=== PATIENT | female | born 1990 | race Two or more races ===

== ENCOUNTER 2016-07-27 06:29 | Day surgery (SDC) | payer OTHER ==
[2016-07-27] MEDS ORDERED: BUPIVACAINE-EPI 0.5%-1:200000 50 ML VIAL. ONE (06:55)
[2016-07-27] MEDS ORDERED: IV RINGERS,LACTATED 1000ML 1,000 ML IV SCH ×2 (07:00→07:30)
[2016-07-27] MEDS ORDERED: LIDOCAINE 1% 1 ML SYRINGE. ID PRN (07:00)
[2016-07-27] MEDS ORDERED: HYDROMORPHONE 2 MG/ML VIAL. IV PRN (07:00)
[2016-07-27] MEDS ORDERED: PROCHLORPERAZINE 10 MG/2 ML VIAL. IV PRN (07:00)
[2016-07-27] MEDS ORDERED: ONDANSETRON PF 4 MG/2 ML VIAL. IV PRN (07:00)
[2016-07-27] MEDS ORDERED: FENTANYL PF 100 MCG/2 ML VIAL. IV PRN ×2 (07:00)
[2016-07-27] MEDS ORDERED: MORPHINE SULFATE 2 MG/ML DISP.SYRIN. IV PRN (07:00)
[2016-07-27 07:10] LABS: NEG OBC UR NEG; POS OBC UR POS
[2016-07-27] MEDS ORDERED: FENTANYL PF 100 MCG/2 ML VIAL. ONE (07:41)
[2016-07-27] MEDS ORDERED: SEVOFLURANE 61 TO 120 MINUTES. IH ONE (07:41)
[2016-07-27] MEDS ORDERED: PROPOFOL 20 ML IV ONE (07:41)
[2016-07-27] MEDS ORDERED: MIDAZOLAM HCL/PF 2 MG/2 ML VIAL. ONE (07:41)
[2016-07-27] MEDS ORDERED: DEXAMETHASONE SOD PHOS 20 MG/5 ML VIAL. ONE (07:42)
[2016-07-27] MEDS ORDERED: LIDOCAINE 2% 100 MG/5 ML SYRINGE. ONE (07:42)
[2016-07-27] MEDS ORDERED: ONDANSETRON PF 4 MG/2 ML VIAL. ONE (07:42)
--- NOTE | 2016-07-27 08:53 | PDOC ---
BRIEF OPERATIVE NOTE Pre-Op Diagnosis Cervical dysplasia Post-Op Diagnosis Same Procedure Performed LEEP Cone and ECC Surgeon Bassam Cathodic Protection Technician None Anesthesia Type: General Blood Loss 5cc Specimens Obtained ECC and LEEP cone Complications None ESTUARDO DAMON MD Jul 27, 2016 08:53
[2016-07-27 09:46] VITALS: BP 113/57
--- NOTE | 2016-07-27 14:12 | OP ---
DATE OF SURGERY: 07/27/2016 PREOPERATIVE DIAGNOSIS: Cervical dysplasia. POSTOPERATIVE DIAGNOSIS: Cervical dysplasia. PROCEDURE: LEEP/cone biopsy and ECC. SURGEON: Theodore Banegas M.D. EDUCATION RN: None. ESTIMATED BLOOD LOSS: 5 mL. COMPLICATIONS: None. CONDITION: Stable. SPECIMENS: ECC and LEEP/cone. DESCRIPTION OF PROCEDURE: Risks, benefits, indications, and alternatives discussed with the patient and the patient's . The patient was brought to the OR theater, placed in dorsolithotomy position in Jani stirrups with adequate general anesthesia. The patient was prepped and draped in usual sterile manner. Bilateral speculum was placed in the vaginal vault. Cervix was identified, IUD string noted. A gentle ECC was performed, not to disturb the IUD and placed on Telfa sponge and handed off the operative field. LEEP/cone was performed in the usual manner and handed off the operative field. Base of LEEP/cone was cauterized with Bovie vault cautery to control any bleeding. Procedure was terminated. Vaginal vault was wiped clean of any debris or blood. Posterior weighted speculum was removed. The procedure was ended. Sponge, needle and instrument counts were correct x 2 per nursing staff. THEODORE BANEGAS MD DR: RALPH/soren JOB#: [id number] / [id number]
== END 2016-07-27 10:04 | disposition home or self-care (01) ==
LOC: SURG 06:29
PROVIDERS: ATTEND Specialist
DX: N87.9 Dysplasia of cervix uteri, unspecified (principal); Z72.89 Other problems related to lifestyle
CPT/HCPCS: 81025; J1100; J2250; J2405; J2704; J3010; J7120

== ENCOUNTER 2017-11-17 09:39 | Emergency (ER) | payer SELFPAY, OTHER ==
[2017-11-17 09:58] LABS: URINE HCG POC HCG POSITIVE (Negative)
[2017-11-17] MEDS: KETOROLAC 60 MG/2 ML INJ. IM (10:00)
[2017-11-17] MEDS: HYDROcodone/APAP 5/325MG 1 TAB TABLET PO (10:00)
[2017-11-17 10:02] LABS: BILIRUBIN,URINE NEGATIVE (NEG); CLARITY,URINE CLEAR; COLOR,URINE YELLOW; GLUCOSE,URINE NEGATIVE (NEG); NITRITE,URINE NEGATIVE (NEG); PH,URINE 6.5; PROTEIN,URINE NEGATIVE (NEG-TRACE); UROBILINOGEN,URINE 0.2 mg/dL (0.2 mg/dL)
[2017-11-17 10:17] LABS: BACTERIA,URINE FEW /HPF (0-FEW); RBC,URINE RARE /HPF (0-2); SQUAMOUS EPITHELIAL CELL,UR FEW /LPF; WBC,URINE RARE /HPF (0-4)
[2017-11-17 10:19] LABS: ADD MAN DIFF? NO
[2017-11-17 10:22] LABS: BASO % 1 % (0-3); EOS # 0.2 x10^3/uL (0.0-0.7); EOS % 2 % (0-3); HEMATOCRIT 39.3 % (36.0-47.0); HEMOGLOBIN 13.3 g/dL (12.0-15.5); LYMPH # 2.4 x10^3/uL (1.0-4.8); LYMPH % 34 % (24-48); MEAN CORPUSCULAR HEMOGLOBIN 31 pg (25-35); MEAN CORPUSCULAR HGB CONC 34 g/dL (31-37); MEAN CORPUSCULAR VOLUME 93 fL (79-100); MONO # 0.6 x10^3/uL (0.0-1.1); MONO % 8 % (0-9); NEUT # 3.9 x10^3uL (1.8-7.7); NEUT % 55 % (31-73); PLATELET COUNT 291 x10^3/uL (140-400); RED BLOOD COUNT 4.22 x10^6/uL (3.50-5.40); RED CELL DISTRIBUTION WIDTH 12.6 % (11.5-14.5); WHITE BLOOD COUNT 7.1 x10^3/uL (4.0-11.0)
[2017-11-17 10:30] LABS: ANION GAP 12 (6-14); BLOOD UREA NITROGEN 6 mg/dL (7-20); BUN/CREATININE RATIO 12 (6-20); CALCIUM 8.8 mg/dL (8.5-10.1); CARBON DIOXIDE 22 mmol/L (21-32); CHLORIDE 104 mmol/L (98-107); CREATININE 0.5 mg/dL (0.6-1.0); GFR 146.9; GLUCOSE 91 mg/dL (70-99); POTASSIUM 3.9 mmol/L (3.5-5.1); SODIUM 138 mmol/L (136-145)
[2017-11-17 10:36] LABS: ALBUMIN 3.7 g/dL (3.4-5.0); ALBUMIN/GLOBULIN RATIO 0.9 (1.0-1.7); ALK PHOS 57 U/L (46-116); ALT (SGPT) 27 U/L (14-59); AST (SGOT) 22 U/L (15-37); TOTAL BILIRUBIN 0.4 mg/dL (0.2-1.0); TOTAL PROTEIN 7.6 g/dL (6.4-8.2)
== END 2017-11-17 12:02 | disposition home or self-care (01) ==
LOC: ER 09:39
DX: O26.891 Other specified pregnancy related conditions, first trimester (principal); R10.2 Pelvic and perineal pain; R10.31 Right lower quadrant pain; M54.9 Dorsalgia, unspecified; Z3A.01 Less than 8 weeks gestation of pregnancy
CPT/HCPCS: 36415; 76801; 76817; 80053; 81001; 81025; 84702; 85025; 86900; 86901; 99285-25

== ENCOUNTER 2018-01-16 08:54 | Emergency (ER) | payer OTHER ==
[~2018-01-16] VITALS: Ht 154.9 cm; Wt 104.3 kg
[2018-01-16 09:41] LABS: BILIRUBIN,URINE NEGATIVE (NEG); CLARITY,URINE CLEAR; COLOR,URINE YELLOW; NITRITE,URINE NEGATIVE (NEG); PH,URINE 6.5; PROTEIN,URINE NEGATIVE (NEG-TRACE); UROBILINOGEN,URINE 0.2 mg/dL (0.2 mg/dL)
[2018-01-16 09:54] LABS: BASO % 0 % (0-3); EOS # 0.2 x10^3/uL (0.0-0.7); EOS % 2 % (0-3); HEMATOCRIT 35.4 % (36.0-47.0); HEMOGLOBIN 12.2 g/dL (12.0-15.5); LYMPH # 2.1 x10^3/uL (1.0-4.8); LYMPH % 29 % (24-48); MEAN CORPUSCULAR HEMOGLOBIN 32 pg (25-35); MEAN CORPUSCULAR HGB CONC 35 g/dL (31-37); MEAN CORPUSCULAR VOLUME 93 fL (79-100); MONO # 0.5 x10^3/uL (0.0-1.1); MONO % 7 % (0-9); NEUT # 4.5 x10^3uL (1.8-7.7); NEUT % 62 % (31-73); PLATELET COUNT 281 x10^3/uL (140-400); RED BLOOD COUNT 3.81 x10^6/uL (3.50-5.40); RED CELL DISTRIBUTION WIDTH 12.4 % (11.5-14.5); WHITE BLOOD COUNT 7.4 x10^3/uL (4.0-11.0)
[2018-01-16 10:02] LABS: SQUAMOUS EPITHELIAL CELL,UR MOD /LPF
[2018-01-16 10:03] LABS: BACTERIA,URINE FEW /HPF (0-FEW); RBC,URINE 0 /HPF (0-2)
--- NOTE | 2018-01-16 10:30 | RAD ---
Obstetrical ultrasound, 01/16/2018: HISTORY: Vaginal bleeding Transabdominal scans were obtained. There is a single intrauterine fetus in a transverse orientation. The biparietal diameter measures 2.1 cm compatible with a gestational age of 13-14 weeks. This yields a sonographic EDC of 07/22/2018. Normal activity and heart motion were seen. The heart rate is 155 bpm. A normal amount of adnexal fluid is present. The developing placenta lies anteriorly. It currently overlies the region of the internal cervical os. No periplacental hemorrhage is identified. The cervical length was estimated at 3.2 cm. The maternal ovaries were not visualized. IMPRESSION: 1. Single viable intrauterine fetus of 13-14 weeks gestational age. 2. Placenta previa is currently evident. Sonographic follow-up is suggested Electronically signed by: Lamont Joaquin MD (01/16/2018 10:26 AM) [facility]
[2018-01-16] MEDS ORDERED: METR500T8 PO (10:44)
--- NOTE | 2018-01-16 10:45 | PHYS DOC ---
Past Medical History Past Medical History: Other Additional Past Medical Histor: CHRONIC BACK PAIN Past Surgical History: Other Additional Past Surgical Histo: LEEP Alcohol Use: None Drug Use: None Adult General Chief Complaint Chief Complaint: VAGINAL BLEEDING HPI HPI Patient is a 27 year old female she is 12 weeks . Patient states last time she began having light. Bleeding and this morning it has stopped. Patient states she never saw any clots. Patient states she was having some menstrual- like cramping but now she has none. Patient rates her pain a 3 out of 10. And states she has lower back pain that she has chronic lower back pain. Patient denies any urinary symptoms or vaginal discharge. Patient states that she did have sex yesterday and the bleeding started. Patient states her last mental. Still in A. fib and that she is due July 28. Patient states she takes no medications except for prenatals. Patient states she has not taken any Tylenol for pain. She states she had a LEEP procedure back in Spring and she has been 6 times, had 4 babies, and one miscarriage. Review of Systems Review of Systems Constitutional: Denies fever or chills [] Eyes: Denies change in visual acuity, redness, or eye pain [] HENT: Denies nasal congestion or sore throat [] Respiratory: Denies cough or shortness of breath [] Cardiovascular: No additional information not addressed in HPI [] GI: Denies abdominal pain, nausea, vomiting, bloody stools or diarrhea [] : vaginal bleeding. Denies dysuria or hematuria [] Musculoskeletal: Denies back pain or joint pain [] Integument: Denies rash or skin lesions [] Neurologic: Denies headache, focal weakness or sensory changes [] Endocrine: Denies polyuria or polydipsia [] All other systems were reviewed and found to be within normal limits, except as documented in this note. Allergies Allergies Allergies Coded Allergies Type Severity Reaction Last Updated Verified No Known Drug Allergies 07/27/16 No Physical Exam Physical Exam Constitutional: Well developed, well nourished, no acute distress, non-toxic appearance. [] HENT: Normocephalic, atraumatic, bilateral external ears normal, oropharynx moist, no oral exudates, nose normal. [] Eyes: PERRLA, EOMI, conjunctiva normal, no discharge. [] Neck: Normal range of motion, no tenderness, supple, no stridor. [] Cardiovascular:Heart rate regular rhythm, no murmur [] Lungs & Thorax: Bilateral breath sounds clear to auscultation [] Abdomen: Vaginal discharge. Bowel sounds normal, soft, no tenderness, no masses , no pulsatile masses. [] Skin: Warm, dry, no erythema, no rash. [] Back: No tenderness, no CVA tenderness. [] Extremities: No tenderness, no cyanosis, no clubbing, ROM intact, no edema. [] Neurologic: Alert and oriented X 3, normal motor function, normal sensory function, no focal deficits noted. [] Psychologic: Affect normal, judgement normal, mood normal. [] Current Patient Data Vital Signs Vital Signs Date Time Temp Pulse Resp B/P (MAP) Pulse Ox O2 Delivery O2 Flow Rate FiO2 01/16/18 11:18 97 16 154/84 (107) 97 Room Air 01/16/18 09:00 98.7 98.7 Lab Values Laboratory Tests Test 01/16/18 09:24 01/16/18 09:30 01/16/18 09:31 Urine Collection Type Void Urine Color Yellow Urine Clarity Clear Urine pH 6.5 Urine Specific [place] 1.015 Urine Protein Negative mg/dL (NEG-TRACE) Urine Glucose (UA) Negative mg/dL (NEG) Urine Ketones (Stick) Trace mg/dL (NEG) Urine Blood Negative (NEG) Urine Nitrite Negative (NEG) Urine Bilirubin Negative (NEG) Urine Urobilinogen Dipstick 0.2 mg/dL (0.2 mg/dL) Urine Leukocyte Esterase Negative (NEG) Urine RBC 0 /HPF (0-2) Urine WBC 1-4 /HPF (0-4) Urine Squamous Epithelial Cells Mod /LPF Urine Bacteria Few /HPF (0-FEW) Urine Mucus Marked /LPF White Blood Count 7.4 x10^3/uL (4.0-11.0) Red Blood Count 3.81 x10^6/uL (3.50-5.40) Hemoglobin 12.2 g/dL (12.0-15.5) Hematocrit 35.4 % (36.0-47.0) L Mean Corpuscular Volume 93 fL (79-100) Mean Corpuscular Hemoglobin 32 pg (25-35) Mean Corpuscular Hemoglobin Concent 35 g/dL (31-37) Red Cell Distribution Width 12.4 % (11.5-14.5) Platelet Count 281 x10^3/uL (140-400) Neutrophils (%) (Auto) 62 % (31-73) Lymphocytes (%) (Auto) 29 % (24-48) Monocytes (%) (Auto) 7 % (0-9) Eosinophils (%) (Auto) 2 % (0-3) Basophils (%) (Auto) 0 % (0-3) Neutrophils # (Auto) 4.5 x10^3uL (1.8-7.7) Lymphocytes # (Auto) 2.1 x10^3/uL (1.0-4.8) Monocytes # (Auto) 0.5 x10^3/uL (0.0-1.1) Eosinophils # (Auto) 0.2 x10^3/uL (0.0-0.7) Basophils # (Auto) 0.0 x10^3/uL (0.0-0.2) Maternal Serum HCG Beta Subunit 50658 mIU/mL (0-5) H POC Urine HCG, Qualitative Hcg positive (Negative) Laboratory Tests 01/16/18 09:30 Microbiology 01/16/18 Wet Prep - Final, Complete EKG EKG [] Radiology/Procedures Radiology/Procedures [US Impressions: [facility] [id number], [place] [id number] IMAGING REPORT Signed PATIENT: DOMINIQUE MCDONALD ACCOUNT: [id number] : 1990 LOCATION: ER AGE: 27 SEX: F EXAM STATUS: REG ER ORD. PHYSICIAN: VALERIY ZEE APRN REASON: vaginal bleeding PROCEDURE: OB < 14 WKS Obstetrical ultrasound, 01/16/2018: HISTORY: Vaginal bleeding Transabdominal scans were obtained. There is a single intrauterine fetus in a transverse orientation. The biparietal diameter measures 2.1 cm compatible with a gestational age of 13-14 weeks. This yields a sonographic EDC of 07/22/2018. Normal activity and heart motion were seen. The heart rate is 155 bpm. A normal amount of adnexal fluid is present. The developing placenta lies anteriorly. It currently overlies the region of the internal cervical os. No periplacental hemorrhage is identified. The cervical length was estimated at 3.2 cm. The maternal ovaries were not visualized. IMPRESSION: 1. Single viable intrauterine fetus of 13-14 weeks gestational age. 2. Placenta previa is currently evident. Sonographic follow-up is suggested Electronically signed by: Lamont Joaquin MD (01/16/2018 10:26 AM) [facility] DICTATED and SIGNED BY: LAMONT JOAQUIN MD DATE: 01/16/18 1023 Course & Med Decision Making Course & Med Decision Making Patient is a 27 year old female she is 12 weeks . Patient states last time she began having light. Bleeding and this morning it has stopped. Patient states she never saw any clots. Patient states she was having some menstrual- like cramping but now she has none. Patient rates her pain a 3 out of 10. And states she has lower back pain that she has chronic lower back pain. Patient denies any urinary symptoms or vaginal discharge. Patient states that she did have sex yesterday and the bleeding started. Patient states her last mental. Still in A. fib and that she is due July 28. Patient states she takes no medications except for prenatals. Patient states she has not taken any Tylenol for pain. She states she had a LEEP procedure back in Spring and she has been 6 times, had 4 babies, and one miscarriage. Abdomen is soft and nontender. Lungs are clear to auscultation in all lobes. Heart rate regular without murmur. Patient has no extremity edema. Upon pelvic exam patient does have vaginal discharge that is white. Patient does not have any adnexal tenderness. Since urine is not infected but she is diagnosed with bacterial vaginosis of which she will get a prescription for metronidazole. 1. Single viable intrauterine fetus of 13-14 weeks gestational age.2. Placenta previa is currently evident. Sonographic follow-up is suggested. Patient is to follow-up with her FAX MACHINE REPAIRER as soon as possible and to have pelvic rest until she is seen by her FAX MACHINE REPAIRER. Return to the ED if she begins having extreme abdominal pain and cramping and vaginal bleeding. [] Dragon Disclaimer Dragon Disclaimer This electronic medical record was generated, in whole or in part, using a voice recognition dictation system. Departure Departure Impression: Primary Impression: Vaginal bleeding before 22 weeks gestation Additional Impression: BV (bacterial vaginosis) Disposition: 01 HOME, SELF-CARE Condition: STABLE Referrals: CIRILO CHRISTIE MD (PCP) Additional Instructions: NO SEX UNTIL YOU FOLLOW UP WITH YOUR PRIMARY CARE PHYSICIAN. FOLLOW UP SOON POSSIBLE. Scripts Metronidazole (METRONIDAZOLE) 500 Mg Tablet 1 TAB PO BID, #14 TAB Prov: VALERIY ZEE APRN 01/16/18 Problem Qualifiers VALERIY ZEE APRN Jan 16, 2018 10:45
[2018-01-16 11:18] VITALS: BP 154/84
[2018-01-17 15:34] LABS: GC PROBE Negative (Negative)
== END 2018-01-16 11:18 | disposition home or self-care (01) ==
LOC: ER 08:54
DX: O46.91 Antepartum hemorrhage, unspecified, first trimester (principal); O23.591 Infection of other part of genital tract in pregnancy, first trimester; N76.0 Acute vaginitis; B96.89 Other specified bacterial agents as the cause of diseases classified elsewhere; G89.29 Other chronic pain; M54.5 Low back pain; Z3A.12 12 weeks gestation of pregnancy
CPT/HCPCS: 36415; 76801; 81001; 81025; 84702; 85025; 86850; 86900; 86901; 87491; 87591; 99285; Q0111

== ENCOUNTER 2018-04-15 12:40 | Observation (INO) | payer OTHER ==
[~2018-04-15 12:40] MED LIST: METR-84 PO
[2018-04-15] MEDS ORDERED: IV RINGERS,LACTATED 1000ML 1,000 ML IV SCH (13:15)
[2018-04-15 13:39] LABS: BILIRUBIN,URINE NEGATIVE (NEG); CLARITY,URINE CLOUDY; COLOR,URINE YELLOW; NITRITE,URINE NEGATIVE (NEG); PH,URINE 7.5; PROTEIN,URINE NEGATIVE (NEG-TRACE)
[2018-04-15 13:54] LABS: AMORPHOUS SEDIMENT,UR PRESENT /HPF; BACTERIA,URINE 0 /HPF (0-FEW); RBC,URINE 0 /HPF (0-2); SQUAMOUS EPITHELIAL CELL,UR FEW /LPF; WBC,URINE 0 /HPF (0-4)
[2018-04-15 14:14] LABS: INFLUENZA A PATIENT NEGATIVE (NEGATIVE); INFLUENZA B PATIENT NEGATIVE (NEGATIVE)
--- NOTE | 2018-04-15 14:36 | RAD ---
CHEST PA LATERAL History: PATIENT HAS COLD AND FLU SYMPTOMS SINCE MONDAY
CONSENT SIGNED, PATIENT SHIELDED, 25 WEEKS-1 DAY. Comparison: None. Heart size: Within normal limits. Alayna/mediastinum: Within normal limits Lungs: There is mild hazy density in the left midlung, seen on the PA image. No dense lobar consolidation. Pleura: No evidence of pleural effusion. Pneumothorax: None visualized Bones: Regional skeleton appears grossly intact. Miscellaneous: None Impression: 1. Small ill-defined opacity overlying left midlung, lateral to the hilum, compatible with a small infiltrate. Electronically signed by: Jeremy Rashid MD (04/15/2018 2:32 PM) [facility]
[2018-04-15] MEDS ORDERED: AMOX500C PO (16:17)
== END 2018-04-15 14:50 | disposition home or self-care (01) ==
LOC: 3 SO LND 12:40
PROVIDERS: ADMIT Specialist; ATTEND Specialist
DX: O26.892 Other specified pregnancy related conditions, second trimester (principal); R10.9 Unspecified abdominal pain; J00 Acute nasopharyngitis [common cold]; Z3A.25 25 weeks gestation of pregnancy
CPT/HCPCS: 71046; 81001; 87804; G0378; G0379

== ENCOUNTER 2018-04-15 15:09 | Emergency (ER) | payer OTHER ==
[~2018-04-15] VITALS: Ht 12.7 cm; Wt 94.3 kg
[2018-04-15] MEDS ORDERED: IV NORMAL SALINE 1000ML BAG 1,000 ML IV ONE (16:15)
[2018-04-15] MEDS ORDERED: cefTRIAXone IV Push 1 GM VIAL. IVP ONE (16:15)
[2018-04-15] MEDS ORDERED: AMOX500C PO (16:17)
[2018-04-15 17:03] LABS: BASO % 1 % (0-3); EOS # 0.2 x10^3/uL (0.0-0.7); EOS % 2 % (0-3); HEMATOCRIT 34.1 % (36.0-47.0); HEMOGLOBIN 11.7 g/dL (12.0-15.5); LYMPH # 2.2 x10^3/uL (1.0-4.8); LYMPH % 24 % (24-48); MEAN CORPUSCULAR HEMOGLOBIN 32 pg (25-35); MEAN CORPUSCULAR HGB CONC 34 g/dL (31-37); MEAN CORPUSCULAR VOLUME 93 fL (79-100); MONO # 0.9 x10^3/uL (0.0-1.1); MONO % 9 % (0-9); NEUT # 6.1 x10^3uL (1.8-7.7); NEUT % 65 % (31-73); PLATELET COUNT 248 x10^3/uL (140-400); RED BLOOD COUNT 3.66 x10^6/uL (3.50-5.40); RED CELL DISTRIBUTION WIDTH 13.6 % (11.5-14.5); WHITE BLOOD COUNT 9.4 x10^3/uL (4.0-11.0)
[2018-04-15 17:05] LABS: CALCIUM 8.8 mg/dL (8.5-10.1); CREATININE 0.7 mg/dL (0.6-1.0); GFR 99.6; POTASSIUM 3.1 mmol/L (3.5-5.1)
[2018-04-15 17:11] LABS: ALBUMIN 2.4 g/dL (3.4-5.0); ALBUMIN/GLOBULIN RATIO 0.5 (1.0-1.7); TOTAL BILIRUBIN 0.2 mg/dL (0.2-1.0); TOTAL PROTEIN 7.1 g/dL (6.4-8.2)
[2018-04-15 17:30] VITALS: BP 110/62
[2018-04-15] MEDS ORDERED: POTASSIUM CHLORIDE 20 MEQ/15 ML ORAL LIQUID. PO ONE (17:30)
--- NOTE | 2018-04-15 17:40 | PHYS DOC ---
Past Medical History Past Medical History: No Pertinent History, Other Additional Past Medical Histor: CHRONIC BACK PAIN Past Surgical History: Other Additional Past Surgical Histo: LEEP Alcohol Use: None Drug Use: None Adult General Chief Complaint Chief Complaint: OTHER COMPLAINTS HPI HPI Patient is a 27 year old female referred from Dr. Banegas upstairs for pneumonia. She was presenting with a few days of cough and some abdominal discomfort that really was only when she was coughing she was cleared by labor and delivery prior to coming here subjective fevers body aches some mild shortness of breath symptoms are overall getting somewhat worse flu swab was negative upstairs according to the nursing staff as well as the urine also. She had a small infiltrate on x-ray so was referred to the ER for further medical evaluation. Review of Systems Review of Systems Constitutional: Eyes: Denies change in visual acuity, redness, or eye pain [] HENT: Respiratory: Musculoskeletal: Denies back pain or joint pain [] Integument: Denies rash or skin lesions [] Neurologic: Denies headache, focal weakness or sensory changes [] Endocrine: Denies polyuria or polydipsia [] All other systems were reviewed and found to be within normal limits, except as documented in this note. Current Medications Current Medications Current Medications Medications (Trade) Dose Ordered Sig/Onofre Start Time Stop Time Status Last Admin Dose Admin Ceftriaxone Sodium (Rocephin) 1 gm 1X ONCE 04/15/18 16:15 04/15/18 16:16 DC 04/15/18 17:01 1 GM Potassium Chloride (KCl Oral Soln) 40 meq 1X ONCE 04/15/18 17:30 04/15/18 17:31 DC Sodium Chloride 1,000 ml @ 1,000 mls/hr 1X ONCE 04/15/18 16:15 04/15/18 17:14 DC 04/15/18 17:00 1,000 MLS/HR Allergies Allergies Allergies Coded Allergies Type Severity Reaction Last Updated Verified No Known Drug Allergies 07/27/16 No Physical Exam Physical Exam Constitutional: Well developed, well nourished, no acute distress, non-toxic appearance. [] HENT: Normocephalic, atraumatic, bilateral external ears normal, oropharynx moist, no oral exudates, nose normal. [] Eyes: PERRLAnjunctiva normal, no discharge. [] Neck: Normal range of motion, no tenderness, supple, no stridor. [] Cardiovascular:Heart rate regular rhythm, no murmur [] Lungs & Thorax: Bilateral breath sounds clear to auscultation []gravid but nontender Abdomen: Bowel sounds normal, soft, no tenderness, no masses, no pulsatile masses. [] Skin: Warm, dry, no erythema, no rash. [] Back: No tenderness, no CVA tenderness. [] Extremities: No tenderness, no cyanosis, no clubbing, ROM intact, Neurologic: Alert and oriented X 3, normal motor function, normal sensory function, no focal deficits noted. [] Psychologic: Affect normal, judgement normal, mood normal. [] Current Patient Data Vital Signs Vital Signs Date Time Temp Pulse Resp B/P (MAP) Pulse Ox O2 Delivery O2 Flow Rate FiO2 04/15/18 16:00 98.3 109 20 120/64 (82) Room Air 97.0 98.3 Lab Values Laboratory Tests Test 04/15/18 16:40 White Blood Count 9.4 x10^3/uL (4.0-11.0) Red Blood Count 3.66 x10^6/uL (3.50-5.40) Hemoglobin 11.7 g/dL (12.0-15.5) L Hematocrit 34.1 % (36.0-47.0) L Mean Corpuscular Volume 93 fL (79-100) Mean Corpuscular Hemoglobin 32 pg (25-35) Mean Corpuscular Hemoglobin Concent 34 g/dL (31-37) Red Cell Distribution Width 13.6 % (11.5-14.5) Platelet Count 248 x10^3/uL (140-400) Neutrophils (%) (Auto) 65 % (31-73) Lymphocytes (%) (Auto) 24 % (24-48) Monocytes (%) (Auto) 9 % (0-9) Eosinophils (%) (Auto) 2 % (0-3) Basophils (%) (Auto) 1 % (0-3) Neutrophils # (Auto) 6.1 x10^3uL (1.8-7.7) Lymphocytes # (Auto) 2.2 x10^3/uL (1.0-4.8) Monocytes # (Auto) 0.9 x10^3/uL (0.0-1.1) Eosinophils # (Auto) 0.2 x10^3/uL (0.0-0.7) Basophils # (Auto) 0.0 x10^3/uL (0.0-0.2) Sodium Level 134 mmol/L (136-145) L Potassium Level 3.1 mmol/L (3.5-5.1) L Chloride Level 100 mmol/L (98-107) Carbon Dioxide Level 20 mmol/L (21-32) L Anion Gap 14 (6-14) Blood Urea Nitrogen 7 mg/dL (7-20) Creatinine 0.7 mg/dL (0.6-1.0) Estimated GFR (Cockcroft-Gault) 99.6 BUN/Creatinine Ratio 10 (6-20) Glucose Level 112 mg/dL (70-99) H Calcium Level 8.8 mg/dL (8.5-10.1) Total Bilirubin 0.2 mg/dL (0.2-1.0) Aspartate Amino Transferase (AST) 15 U/L (15-37) Alanine Aminotransferase (ALT) 17 U/L (14-59) Alkaline Phosphatase 75 U/L (46-116) Total Protein 7.1 g/dL (6.4-8.2) Albumin 2.4 g/dL (3.4-5.0) L Albumin/Globulin Ratio 0.5 (1.0-1.7) L Laboratory Tests 04/15/18 16:40 Laboratory Tests 04/15/18 16:40 EKG EKG [] Radiology/Procedures Radiology/Procedures [] Impressions: Chest x-ray showed small infiltrate Course & Med Decision Making Course & Med Decision Making Pertinent Labs and Imaging studies reviewed. (See chart for details) [] pneumonia old woman who is 25 weeks labs look pretty good we did replete her potassium. community acquired pna, overall well appearing. hydrated, ceftriaxone, add high dose amox to azithro. d/w banegas he will f/u with her on monday Mirna Disclaimer Mirna Disclaimer This electronic medical record was generated, in whole or in part, using a voice recognition dictation system. Departure Departure Impression: Primary Impression: Pneumonia Disposition: HOME, SELF-CARE Condition: STABLE Patient Instructions: Pneumonia, Adult, [id number] Scripts Amoxicillin (AMOXICILLIN) 500 Mg Capsule 2 CAP PO BID, #40 CAP Prov: MAGDALENA WALKER MD 04/15/18 MAGDALENA WALKER MD Apr 15, 2018 17:40
== END 2018-04-15 18:14 | disposition home or self-care (01) ==
LOC: ER 15:09
DX: J18.9 Pneumonia, unspecified organism (principal); R10.9 Unspecified abdominal pain; G89.29 Other chronic pain; M54.9 Dorsalgia, unspecified
CPT/HCPCS: 36415; 80053; 85025; 96374; 99283; J0696; J7030

== ENCOUNTER 2018-07-26 23:39 | Inpatient (IN) | payer OTHER ==
[~2018-07-26] VITALS: Ht 154.9 cm; Wt 97.5 kg
[~2018-07-26 23:39] MED LIST changes: +AMOX500C PO; +METR-34 PO; -METR-84 PO
[2018-07-26] MEDS ORDERED: TERBUTALINE 1 MG/ML VIAL. SQ PRN (23:45)
[2018-07-26] MEDS ORDERED: LIDOCAINE 1% PF 30 ML VIAL. INJ PRN (23:45)
[2018-07-26] MEDS ORDERED: IV RINGERS,LACTATED 1000ML 1,000 ML IV SCH (23:45)
[2018-07-26] MEDS ORDERED: MAG HYDROX/ALUMINUM HYD/SIMETH 30 ML ORAL.SUSP PO PRN (23:45)
[2018-07-26] MEDS ORDERED: OXYTOCIN 30 UNIT/500 ML PREMIX 500 ML IV PRN ×2 (23:45)
[2018-07-26] MEDS ORDERED: 0.9 % SODIUM CHLORIDE 10 ML DISP.SYRIN. IV PRN (23:45)
[2018-07-26] MEDS ORDERED: ONDANSETRON PF 4 MG/2 ML VIAL. IV PRN (23:45)
[2018-07-26] MEDS ORDERED: ACETAMINOPHEN 325 MG TABLET. PO PRN (23:45)
[2018-07-26] MEDS ORDERED: IBUPROFEN 400 MG TABLET. PO PRN (23:45)
[2018-07-26] MEDS ORDERED: fentaNYL PF VIAL 100 MCG/2 ML VIAL IV PRN ×2 (23:45)
[2018-07-26] MEDS ORDERED: BUTORPHANOL 2 MG/ML VIAL. IV PRN ×2 (23:45)
[2018-07-27 00:35] LABS: BILIRUBIN,URINE NEGATIVE (NEG); CLARITY,URINE CLEAR; COLOR,URINE YELLOW; NITRITE,URINE NEGATIVE (NEG); PH,URINE 6.5; PROTEIN,URINE NEGATIVE (NEG-TRACE); UROBILINOGEN,URINE 0.2 mg/dL (0.2 mg/dL)
[2018-07-27 00:40] LABS: BASO % 0 % (0-3); EOS # 0.2 x10^3/uL (0.0-0.7); EOS % 2 % (0-3); HEMATOCRIT 37.6 % (36.0-47.0); HEMOGLOBIN 12.4 g/dL (12.0-15.5); LYMPH # 2.6 x10^3/uL (1.0-4.8); LYMPH % 30 % (24-48); MEAN CORPUSCULAR HEMOGLOBIN 30 pg (25-35); MEAN CORPUSCULAR HGB CONC 33 g/dL (31-37); MEAN CORPUSCULAR VOLUME 91 fL (79-100); MONO # 0.7 x10^3/uL (0.0-1.1); MONO % 8 % (0-9); NEUT % 59 % (31-73); PLATELET COUNT 221 x10^3/uL (140-400); RED BLOOD COUNT 4.12 x10^6/uL (3.50-5.40); RED CELL DISTRIBUTION WIDTH 16.3 % (11.5-14.5); WHITE BLOOD COUNT 8.4 x10^3/uL (4.0-11.0)
[2018-07-27 00:41] LABS: BARBITURATES NEG (NEG); BENZODIAZEPINES NEG (NEG); CANNABINOIDS NEG (NEG); COCAINE NEG (NEG); METHADONE NEG (NEG); OPIATES NEG (NEG); PHENCYCLIDINE NEG (NEG)
[2018-07-27 00:44] LABS: AMPHETAMINE/METHAMPHETAMINE NEG (NEG)
[2018-07-27 01:44] VITALS: BP 116/63
--- NOTE | 2018-07-27 07:06 | PDOC1 ---
OB - History Hx of Present Care: Good Care Ultrasounds: Normal mid trimester US Obstetrical Complications: None Medical Complications: None Past Family/Social History * Past Medical, Surgical, Family and Obstetric Histories reviewed from chart. Rubella: Immune RPR/VDRL: Negative GBS Status: Negative HBsAG: Negative OB - Chief Complaint & HPI Date of Admission: Date of Admission: Jul 26, 2018 at 23:39 Chief Complaint/History : 5 Para: 4 EGA: 39 Reason for admission: induction of labor Indication for induction: maternal discomfort Admission Nurse Assessment Rev: Yes OB - Admission Exam Physical Exam Vitals: VS - Last 72 Hours, by Label Date Time Temp Pulse Resp B/P (MAP) Pulse Ox O2 Delivery O2 Flow Rate FiO2 07/27/18 06:48 18 Room Air 07/27/18 01:44 98.6 79 18 116/63 (80) 93 Room Air 98.6 HEENT: Normal Heart: Regular Rate Lungs: Clear Abdomen: Gravid, Non tender, Soft Extremities: Edema Reflexes: Normal Cervical Dilatation: 2cm Effacement: 50% Station: -3 Membranes: Intact Heart Rate: Normal Accelerations: Accelerations Present Decelerations: No decelerations Contractions on Admission: None Text A: 39 wks IUP IOL secondary discomforts P: Admit for IOL. ABDIEL LU Jr, MD Jul 27, 2018 07:06
[2018-07-27] MEDS ORDERED: ROPIVacaine 0.2% PF 10 ML VIAL. ONE ×2 (07:31→08:00)
[2018-07-27] MEDS ORDERED: L&D EPIDURAL SYRINGE 50 ML ONE (07:32)
[2018-07-27] MEDS ORDERED: IV RINGERS,LACTATED 1000ML 1,000 ML IV SCH (07:57)
[2018-07-27] MEDS ORDERED: ePHEDrine PF IN SALINE 50 MG/10 ML SYRINGE. IV PRN (08:00)
[2018-07-27] MEDS ORDERED: L&D EPIDURAL 50 ML SYRINGE. ONE (08:00)
[2018-07-27] MEDS ORDERED: ROPIVacaine 0.2% IN 0.9%NACL PF 40 MG/20 ML DISP.SYRIN. EPI PRN (08:00)
[2018-07-27] MEDS ORDERED: NALOXONE 0.4 MG/ML VIAL. IV PRN (08:00)
[2018-07-27] MEDS ORDERED: L&D EPIDURAL CASSETTE 100 ML EPID PRN (08:00)
[2018-07-27] MEDS ORDERED: IBUPROFEN 400 MG TABLET. PO PRN ×2 (10:45→12:00)
[2018-07-27] MEDS ORDERED: OXYTOCIN 30 UNIT/500 ML PREMIX 500 ML IV PRN (10:45)
[2018-07-27] MEDS ORDERED: ACETAMINOPHEN 325 MG TABLET. PO PRN (10:45)
[2018-07-27] MEDS ORDERED: SIMETHICONE 80 MG TAB.CHEW PO PRN (10:45)
[2018-07-27] MEDS ORDERED: 0.9 % SODIUM CHLORIDE 10 ML DISP.SYRIN. IV PRN (10:45)
[2018-07-27] MEDS ORDERED: MAG HYDROX/ALUMINUM HYD/SIMETH 30 ML ORAL.SUSP PO PRN (10:45)
[2018-07-27] MEDS ORDERED: BENZOCAINE 20% TOPICAL AEROSOL SPRAY 57GM CAN. TP PRN (10:45)
[2018-07-27] MEDS ORDERED: diphenhydrAMINE HCL 25 MG CAPSULE PO PRN (10:45)
[2018-07-27] MEDS ORDERED: ZOLPIDEM 5 MG TABLET. PO PRN (10:45)
[2018-07-27] MEDS ORDERED: PHENYLEPH/MINERAL OIL/PETROLAT RECTAL OINTMENT 28GM TUBE. RC PRN (10:45)
[2018-07-27] MEDS ORDERED: MAGNESIUM HYDROXIDE 2,400 MG/30 ML ORAL.SUSP. PO PRN (10:45)
[2018-07-27] MEDS ORDERED: HYDROCORTISONE 1% TOPICAL OINTMENT 30GM TUBE. TP PRN (10:45)
--- NOTE | 2018-07-27 11:06 | PDOC ---
VAGINAL DELIVERY DATE DATE: 07/27/18 TIME: 11:05 : 5 Para: 4 EDC: Aug 02, 2018 VAGINAL DELIVERY: VTX VACCUM ASSISTED: No PLACENTA: Spontaneous SEX: Female WEIGHT 8/10 Nuchal Cord: No Amniotic Fluid: Clear PAIN: Epidural EPISIOTOMY: No EXTENSION: No EBL 300cc COMPLICATIONS -N-o-n-e- CONDITION Stable Signs of Intrauterine Infectio: None Shoulder Dystocia: No DIAGNOSIS ESTUARDO Morrison MD Jul 27, 2018 11:06
[2018-07-27] MEDS: IBUPROFEN 400 MG TABLET. PO SCH ×2 (12:17→20:12)
[2018-07-27 14:00] VITALS: BP 92/62
[2018-07-27 15:15] VITALS: BP 96/62
[2018-07-27] MEDS ORDERED: DIPHTH,PERTUSS(ACELL),TET TOX 0.5 ML DISP.SYRIN. VAX IM ONE (16:30)
[2018-07-27] MEDS: FERROUS SULFATE 325 MG TABLET. PO SCH (17:26)
[2018-07-27] MEDS: HYDROcodone/APAP 5/325MG 1 TAB TABLET PO PRN (22:59)
[2018-07-27 23:00] VITALS: BP 106/61
[2018-07-28 05:59] VITALS: BP 113/61
[2018-07-28] MEDS: IBUPROFEN 400 MG TABLET. PO SCH ×3 (06:03→22:11)
[2018-07-28] MEDS: HYDROcodone/APAP 5/325MG 1 TAB TABLET PO PRN ×2 (06:04→11:00)
[2018-07-28] MEDS: FERROUS SULFATE 325 MG TABLET. PO SCH ×2 (08:00→17:00)
[2018-07-28 11:00] VITALS: BP 99/56
--- NOTE | 2018-07-28 15:25 | PDOC ---
OB Progress Note Date of Service 07/28/18 Time of Evaluation 1520 Notes PT. feeling well. No complaints. Lab Laboratory Tests Test 07/27/18 00:25 07/27/18 00:30 07/28/18 06:20 White Blood Count 8.4 x10^3/uL (4.0-11.0) Red Blood Count 4.12 x10^6/uL (3.50-5.40) Hemoglobin 12.4 g/dL (12.0-15.5) Hematocrit 37.6 % (36.0-47.0) 31.4 % (36.0-47.0) Mean Corpuscular Volume 91 fL (79-100) Mean Corpuscular Hemoglobin 30 pg (25-35) Mean Corpuscular Hemoglobin Concent 33 g/dL (31-37) Red Cell Distribution Width 16.3 % (11.5-14.5) Platelet Count 221 x10^3/uL (140-400) Neutrophils (%) (Auto) 59 % (31-73) Lymphocytes (%) (Auto) 30 % (24-48) Monocytes (%) (Auto) 8 % (0-9) Eosinophils (%) (Auto) 2 % (0-3) Basophils (%) (Auto) 0 % (0-3) Neutrophils # (Auto) 5.0 x10^3uL (1.8-7.7) Lymphocytes # (Auto) 2.6 x10^3/uL (1.0-4.8) Monocytes # (Auto) 0.7 x10^3/uL (0.0-1.1) Eosinophils # (Auto) 0.2 x10^3/uL (0.0-0.7) Basophils # (Auto) 0.0 x10^3/uL (0.0-0.2) Treponema pallidum Antibody Nonreactive (Nonreactive) Hepatitis B Surface Antigen Nonreactive (Nonreactive) Urine Collection Type Unknown Urine Color Yellow Urine Clarity Clear Urine pH 6.5 Urine Specific [place] 1.015 Urine Protein Negative mg/dL (NEG-TRACE) Urine Glucose (UA) Negative mg/dL (NEG) Urine Ketones (Stick) Negative mg/dL (NEG) Urine Blood Negative (NEG) Urine Nitrite Negative (NEG) Urine Bilirubin Negative (NEG) Urine Urobilinogen Dipstick 0.2 mg/dL (0.2 mg/dL) Urine Leukocyte Esterase Negative (NEG) Urine Opiates Screen Neg (NEG) Urine Methadone Screen Neg (NEG) Urine Barbiturates Neg (NEG) Urine Phencyclidine Screen Neg (NEG) Urine Amphetamine/Methamphetamine Neg (NEG) Urine Benzodiazepines Screen Neg (NEG) Urine Cocaine Screen Neg (NEG) Urine Cannabinoids Screen Neg (NEG) Urine Ethyl Alcohol Neg (NEG) Laboratory Tests Test 07/28/18 06:20 Hematocrit 31.4 % (36.0-47.0) Medications Current Medications Sodium Chloride (Normal Saline Flush) 3 ml QSHIFT PRN IV AFTER MEDS AND BLOOD DRAWS; Start 07/26/18 at 23:45 Ringer's Solution 1,000 ml @ 125 mls/hr Q8H IV Last administered on 07/27/18at 01:36; Start 07/26/18 at 23:45; Stop 07/27/18 at 15:51; Status DC Butorphanol Tartrate (Stadol) 1 mg PRN Q1HR PRN IV mild to moderate labor pain ; Start 07/26/18 at 23:45 Butorphanol Tartrate (Stadol) 2 mg PRN Q1HR PRN IV Severe labor pain Last administered on 07/27/18at 06:48; Start 07/26/18 at 23:45 Fentanyl Citrate (Fentanyl 2ml Vial) 75 mcg PRN Q20MIN PRN IV Labor pain; Start 07/26/18 at 23:45 Fentanyl Citrate (Fentanyl 2ml Vial) 100 mcg PRN Q20MIN PRN IV Labor pain; Start 07/26/18 at 23:45 Acetaminophen (Tylenol) 650 mg PRN Q6HRS PRN PO MILD PAIN / TEMP Last administered on 07/27/18at 17:26; Start 07/26/18 at 23:45 Ondansetron HCl (Zofran) 4 mg PRN Q4HRS PRN IV NAUSEA/VOMITING; Start 07/26/18 at 23:45 Al Hydroxide/Mg Hydroxide (Mylanta Plus Xs) 30 ml PRN Q4HRS PRN PO HEARTBURN / GAS; Start 07/26/18 at 23:45 Terbutaline Sulfate (Brethine) 0.25 mg 1X PRN PRN SQ SEE COMMENTS; Start at 23:45; Stop 07/27/18 at 23:44; Status DC Lidocaine HCl (Xylocaine 1% Pf 30ml Vial) 30 ml 1X PRN PRN INJ SEE COMMENTS; Start 07/26/18 at 23:45; Stop 07/28/18 at 23:44 Oxytocin/Sodium Chloride 500 ml @ 0 mls/hr CONT PRN IV SEE I/O RECORD Last administered on 07/27/18at 01:39; Start 07/26/18 at 23:45 Oxytocin/Sodium Chloride 500 ml @ 0 mls/hr CONT PRN PRN IV Post delivery bleeding; Start 07/26/18 at 23:45 Ibuprofen (Motrin) 800 mg PRN Q6HRS PRN PO PAIN; Start 07/26/18 at 23:45; Stop 07/27/18 at 10:52; Status DC Ropivacaine (Naropin 0.2%) 10 ml STK-MED ONCE .ROUTE ; Start 07/27/18 at 07:31; Stop 07/27/18 at 07:32; Status DC Ropivacaine/ Fentanyl/NS 50 ml @ As Directed STK-MED ONCE .ROUTE ; Start at 07:32; Stop 07/27/18 at 07:33; Status DC Ropivacaine/ Fentanyl/NS 100 ml @ 14 mls/hr CONT PRN EPID PAIN; Start at 08:00; Stop 07/28/18 at 06:59; Status DC Ringer's Solution 1,000 ml @ 125 mls/hr Q8H IV ; Start 07/27/18 at 07:57; Stop 07/27/18 at 15:51; Status DC Ephedrine Sulfate (ePHEDrine PF IN SALINE SYRINGE) 10 mg PRN Q2MIN PRN IV IF SBP<90; Start 07/27/18 at 08:00 Naloxone HCl (Narcan) 0.04 mg PRN Q1MIN PRN IV SEE COMMENTS; Start 07/27/18 at 08:00 Ropivacaine/ Sodium Chloride (ROPIVacaine 0.2% - 0.9%NACL PF) 40 mg PRN 1X PRN EPI SEE COMMENTS; Start 07/27/18 at 08:00 Sodium Chloride (Normal Saline Flush) 10 ml QSHIFT PRN IV AFTER MEDS AND BLOOD DRAWS; Start 07/27/18 at 10:45 Oxytocin/Sodium Chloride 500 ml @ 62.5 mls/hr CONT PRN IV SEE I/O RECORD; Start 07/27/18 at 10:45; Stop 07/27/18 at 18:44; Status DC Acetaminophen (Tylenol) 650 mg PRN Q6HRS PRN PO MILD PAIN / TEMP; Start at 10:45 Ibuprofen (Motrin) 800 mg Q8HRS PO Last administered on 07/28/18at 06:03; Start 07/27/18 at 14:00 Ibuprofen (Motrin) 800 mg PRN Q8HRS PRN PO INFLAMMATION/PAIN PREVENTION; Start 07/27/18 at 10:45; Stop 07/27/18 at 10:52; Status DC Magnesium Hydroxide (Milk Of Magnesia) 2,400 mg PRN DAILY PRN PO CONSTIPATION; Start 07/27/18 at 10:45 Al Hydroxide/Mg Hydroxide (Mylanta Plus Xs) 30 ml PRN Q4HRS PRN PO HEARTBURN / GAS; Start 07/27/18 at 10:45 Simethicone (Gas-X) 80 mg PRN AFTMEALHC PRN PO GAS / BLOATING; Start 07/27/18 at 10:45 Diphenhydramine HCl (Benadryl) 25 mg PRN Q6HRS PRN PO ITCHING; Start 07/27/18 at 10:45 Benzocaine (Americaine) 1 spray PRN QID PRN TP TOPICAL PAIN; Start 07/27/18 at 10:45 Phenyleph/Shark Oil/Min Oil/Petrol (Preparation H) 1 maksim PRN QID PRN RC RECTAL PAIN; Start 07/27/18 at 10:45 Hydrocortisone (Cortaid) 1 maksim PRN QID PRN TP PERINEAL PAIN; Start 07/27/18 at 10:45 Ferrous Sulfate (Feosol) 325 mg BIDWMEALS PO Last administered on 07/27/18at 17: 26; Start 07/27/18 at 17:00 Zolpidem Tartrate (Ambien) 5 mg PRN QHS PRN PO INSOMNIA, MAY REPEAT X1; Start 07/27/18 at 10:45 Info (Do NOT chart on this placeholder) 1 ea 1X PRN PRN MC SEE COMMENTS; Start 07/27/18 at 10:45 Ropivacaine/ Fentanyl/NS (Bhghbaxb-Goyqg-PI 3 Mcg-0.1%) 50 ml STK-MED ONCE .ROUTE ; Start 07/27/18 at 08:00; Stop 07/27/18 at 11:04; Status DC Ropivacaine (Naropin 0.2%) 10 ml STK-MED ONCE .ROUTE ; Start 07/27/18 at 08:00; Stop 07/27/18 at 11:04; Status DC Ibuprofen (Motrin) 800 mg PRN Q6HRS PRN PO INFLAMMATION; Start 07/27/18 at 12: 00 Acetaminophen/ Hydrocodone Bitart (Lortab 5/325) 1 tab PRN Q4HRS PRN PO PAIN Last administered on 07/28/18at 11:00; Start 07/27/18 at 12:00 Diphtheria/ Tetanus/Acell Pertussis (Boostrix) 0.5 ml ONCE ONCE VAX IM ; Start 07/27/18 at 16:30; Stop 07/27/18 at 16:31; Status DC Active Scripts Active Amoxicillin 500 Mg Capsule 2 Cap PO BID Metronidazole 500 Mg Tablet 1 Tab PO BID Exam Abd: soft, non tender, fundus firm Assessment PPD#1 s/p Plan of Care: Continue current Tx, Mgmt ABDIEL LU Jr, MD Jul 28, 2018 15:25
[2018-07-28 17:33] VITALS: BP 108/52
[2018-07-28 19:53] VITALS: BP 104/57
[2018-07-28 20:00] VITALS: BP 115/54
[2018-07-29] MEDS: HYDROcodone/APAP 5/325MG 1 TAB TABLET PO PRN ×2 (00:57→05:45)
[2018-07-29 04:48] VITALS: BP 107/63
[2018-07-29] MEDS: IBUPROFEN 400 MG TABLET. PO SCH (06:00)
[2018-07-29] MEDS: FERROUS SULFATE 325 MG TABLET. PO SCH (09:21)
--- NOTE | 2018-07-29 10:14 | PDOC3 ---
OB DISCHARGE SUMMARY DATE OF ADMISSION: 07/27/18 DATE OF DISCHARGE: 07/29/18 REASON FOR ADMISSION: Onset of labor INTRAPARTUM PROCEDURES: Spontanous Vag Deliv DISCHARGE DIAGNOSIS: Term Delivered DISCHARGE INFORMATION: Activity (ad fatuma), Diet (regular), Instructions (pelvic rest x 6 wks) HOSPITAL COURSE Term gestation delivered without complications. ABDIEL LU Jr, MD Jul 29, 2018 10:14
[2018-07-29] MEDS ORDERED: DOCU-109 PO (10:17)
[2018-07-29] MEDS ORDERED: NAPR-514 PO (10:17)
[2018-07-29] MEDS ORDERED: HYDR-2761 PO (10:17)
--- NOTE | 2018-07-29 10:18 | DISCH ---
DISCHARGE INSTRUCTIONS Condition on Discharge Condition on Discharge: Stable Activity After Discharge Activity Instructions for Disc: Activity as tolerated Lifting Instructions after Dis: No heavy lifting Driving Instructions after Dis: Do not drive today Diet after Discharge Diet after Discharge: Regular Contacting the DRPedro Pablo after DC Call your doctor for: Concerns you may have Follow-Up Follow up with: Dr. Banegas in 1 week. ABDIEL LU Jr, MD Jul 29, 2018 10:18
[2018-07-29 12:30] VITALS: BP 109/66
== END 2018-07-29 13:20 | disposition home or self-care (01) | DRG 806 ==
LOC: 3 SO LND 23:39 → 3 NORTH 07-27 13:25
PROVIDERS: ADMIT Specialist; ATTEND Specialist
PROC: 10E0XZZ Delivery of Products of Conception, External Approach (ICD-10-PCS; principal; 2018-07-26)
PROC: 00HU33Z Insertion of Infusion Device into Spinal Canal, Percutaneous Approach (ICD-10-PCS; 2018-07-26)
PROC: 3E0R3BZ Introduction of Anesthetic Agent into Spinal Canal, Percutaneous Approach (ICD-10-PCS; 2018-07-26)
DX: O80 Encounter for full-term uncomplicated delivery (principal); R71.0 Precipitous drop in hematocrit; Z37.0 Single live birth; Z3A.39 39 weeks gestation of pregnancy
CPT/HCPCS: 36415; 80307; 81003; 85014; 85025; 86592; 86850; 86900; 86901; 87340; 90471; 90715; J2590; J2795; J7120

== ENCOUNTER 2020-10-26 21:13 | Emergency (ER) | payer OTHER ==
[~2020-10-26] VITALS: Ht 154.9 cm; Wt 82.7 kg
[~2020-10-26 21:13] MED LIST changes: +DOCU-109 PO; +HYDR-2761 PO; +NAPR-514 PO
[2020-10-26 22:04] VITALS: BP 116/72
--- NOTE | 2020-10-26 22:47 | PHYS DOC ---
Past Medical History Past Medical History: No Pertinent History, Other Additional Past Medical Histor: CHRONIC BACK PAIN Past Surgical History: Other Additional Past Surgical Histo: LEEP Smoking Status: Never Smoker Alcohol Use: None Drug Use: None General Adult EDM: Chief Complaint: INSECT BITE HPI: HPI: Patient is a 30 year old female presents for evaluation of rash. Patient states rash has been ongoing for a while 1 day. Rash is located on her face bilateral arms chest and back. Rash all appear similar in size and age. Raised with erythema. Review of Systems: Review of Systems: Constitutional: Denies fever or chills. [] Eyes: Denies change in visual acuity. [] HENT: Denies nasal congestion or sore throat. [] Respiratory: Denies cough or shortness of breath. [] Cardiovascular: Denies chest pain or edema. [] GI: Denies abdominal pain, nausea, vomiting, bloody stools or diarrhea. [] : Denies dysuria. [] Musculoskeletal: Denies back pain or joint pain. [] Integument: positive rash. [] Neurologic: Denies headache, focal weakness or sensory changes. [] Endocrine: Denies polyuria or polydipsia. [] Lymphatic: Denies swollen glands. [] Psychiatric: Denies depression or anxiety. [] Heart Score: C/O Chest Pain: N/A Risk Factors: Risk Factors: DM, Current or recent (<one month) smoker, HTN, HLP, family history of CAD, obesity. Risk Scores: Score 0 - 3: 2.5% MACE over next 6 weeks - Discharge Home Score 4 - 6: 20.3% MACE over next 6 weeks - Admit for Clinical Observation Score 7 - 10: 72.7% MACE over next 6 weeks - Early Invasive Strategies Allergies: Allergies: Allergies Coded Allergies Type Severity Reaction Last Updated Verified No Known Drug Allergies 07/27/16 No Physical Exam: PE: Constitutional: Well developed, well nourished, no acute distress, non-toxic appearance. [] HENT: Normocephalic, atraumatic, bilateral external ears normal, oropharynx moist, no oral exudates, nose normal. [] Eyes: PERRLA, EOMI, conjunctiva normal, no discharge. [] Neck: Normal range of motion, no tenderness, supple, no stridor. [] Cardiovascular:Heart rate regular rhythm, no murmur [] Lungs & Thorax: Bilateral breath sounds clear to auscultation [] Abdomen: Bowel sounds normal, soft, no tenderness, no masses, no pulsatile masses. [] Skin: Warm, dry, no erythema, positive rash arms legs face . [] Back: No tenderness, no CVA tenderness. [] Extremities: No tenderness, no cyanosis, no clubbing, ROM intact, no edema. [] Neurologic: Alert and oriented X 3, normal motor function, normal sensory function, no focal deficits noted. [] Psychologic: Affect normal, judgement normal, mood normal. [] Current Patient Data: Vital Signs: Vital Signs Date Time Temp Pulse Resp B/P (MAP) Pulse Ox O2 Delivery O2 Flow Rate FiO2 10/26/20 22:04 98.6 84 18 116/72 (80) 99 Room Air 98.6 EKG: EKG: [] Radiology/Procedures: Radiology/Procedures: [] Course & Med Decision Making: Course & Med Decision Making Pertinent Labs and Imaging studies reviewed. (See chart for details) [] Dragon Disclaimer: Dragon Disclaimer: This electronic medical record was generated, in whole or in part, using a voice recognition dictation system. Departure Departure Impression: Primary Impression: Rash and nonspecific skin eruption Additional Impression: Insect bite Disposition: 01 HOME / SELF CARE / HOMELESS Condition: STABLE Referrals: CIRILO CHRISTIE MD (PCP) Patient Instructions: Rash Scripts Prednisone (PREDNISONE) 20 Mg Tablet 1 TAB PO UD for 12 Days, #15 TAB Take 2 tabs days 1,2,3 1.5 tabs days 3,4,5 1 tab days 6,7,8 0.5 tab days 9,10,11 Prov: KENDALL RONQUILLO DO 10/26/20 Cephalexin (CEPHALEXIN) 500 Mg Tablet 1 TAB PO QID, #40 TAB Prov: KENDALL RONQUILLO DO 10/26/20 KENDALL RONQUILLO DO Oct 26, 2020 22:47
[2020-10-26] MEDS ORDERED: CEPH500T PO (22:49)
[2020-10-26] MEDS ORDERED: PRED20TA PO (22:49)
== END 2020-10-26 22:58 | disposition home or self-care (01) ==
LOC: ER 21:13
DX: S40.862A Insect bite (nonvenomous) of left upper arm, initial encounter (principal); S40.861A Insect bite (nonvenomous) of right upper arm, initial encounter; S20.369A Insect bite (nonvenomous) of unspecified front wall of thorax, initial encounter; S30.860A Insect bite (nonvenomous) of lower back and pelvis, initial encounter; G89.29 Other chronic pain; W57.XXXA Bitten or stung by nonvenomous insect and other nonvenomous arthropods, initial encounter; Y93.89 Activity, other specified; Y92.89 Other specified places as the place of occurrence of the external cause; Y99.8 Other external cause status
CPT/HCPCS: 99281; 99282